=== PATIENT | female | born 1980 | race Caucasian/White ===

== ENCOUNTER 2019-03-23 07:35 | Day surgery (SDC) | payer OTHER ==
[~2019-03-23] VITALS: Ht 162.6 cm; Wt 52.9 kg
[~2019-03-23 07:35] MED LIST: BUPIVACAINE/PF 0.25% ONE; EPINEPHRINE 1 MG/ML, 1ML ONE; NEOMY/POLYMYXIN B GU IRR. 1 ML ONE
[2019-03-23] MEDS ORDERED: LACTATED RINGERS 1,000 ML IV SCH (07:57)
[2019-03-23 08:23] VITALS: BP 124/87
[2019-03-23] MEDS ORDERED: CALC250T PO (08:23)
[2019-03-23] MEDS ORDERED: FLUT9.9S NAS (08:23)
[2019-03-23] MEDS ORDERED: MEDR10TA PO (08:23)
[2019-03-23] MEDS ORDERED: MAGNESIUM PO (08:23)
[2019-03-23] MEDS ORDERED: BIOT25005 PO (08:23)
[2019-03-23] MEDS ORDERED: VITAMIN B12 PO (08:23)
[2019-03-23] MEDS ORDERED: LEVO25TA4 PO (08:23)
[2019-03-23] MEDS ORDERED: FERR-46 PO (08:23)
[2019-03-23] MEDS ORDERED: PLEASE ENTER ALLERGIES MC SCH (08:30)
[2019-03-23] MEDS ORDERED: GABAPENTIN 300 MG CAPSULE PO ONE (08:30)
[2019-03-23] MEDS ORDERED: PLEASE ENTER HEIGHT AND WEIGHT MC SCH (08:30)
[2019-03-23] MEDS ORDERED: ACETAMINOPHEN 500 MG TABLET PO ONE (08:30)
[2019-03-23] MEDS ORDERED: MIDAZOLAM 1 MG/ML, 2ML ONE (08:42)
[2019-03-23] MEDS ORDERED: FENTANYL PF 250 MCG/5ML ONE (08:42)
[2019-03-23 08:54] LABS: HCG UR SG 1.023 (1.003-1.030)
[2019-03-23 08:56] LABS: MEAN CORPUSCULAR HEMOGLOBIN 28.4 pg (27.0-34.8); MEAN CORPUSCULAR HGB CONC 32.8 g/dL (32.4-35.8); MEAN CORPUSCULAR VOLUME 86.4 fL (80-100); MEAN PLATELET VOLUME 9.3 fL (7.4-10.4); PLATELET COUNT 234 x10^3/uL (130-400); RED CELL DISTRIBUTION WIDTH 25.2 % (9.6-15.2)
[2019-03-23] MEDS ORDERED: DIPHENHYDRAMINE 50 MG/ML, 1ML IVPush PRN (09:00)
[2019-03-23] MEDS ORDERED: OXYcodone 5 MG/5 ML ORAL.SOL UDC PO PRN (09:00)
[2019-03-23] MEDS ORDERED: hydrALAzine 20 MG/ML, 1ML IV PRN (09:00)
[2019-03-23] MEDS ORDERED: PROCHLORPERAZINE 5 MG/ML, 2ML IV PRN (09:00)
[2019-03-23] MEDS ORDERED: HYDROmorphone 2 MG/ML, 1ML IVPush PRN (09:00)
[2019-03-23] MEDS ORDERED: METOPROLOL 1 MG/ML, 5ML IV PRN (09:00)
[2019-03-23] MEDS ORDERED: PROMETHAZINE 25 MG/ML, 1ML IV PRN (09:00)
[2019-03-23] MEDS ORDERED: HALOPERIDOL 5 MG/ML IV PRN (09:00)
[2019-03-23] MEDS ORDERED: LABETALOL 5MG/ML, 20ML IV PRN (09:00)
[2019-03-23] MEDS ORDERED: MEPERIDINE/PF 25MG/0.5ML IVPush PRN (09:00)
[2019-03-23 09:26] LABS: BASOPHILS # (AUTO) 0.05 x10^3/uL (0-0.1); BASOPHILS % (AUTO) 1 % (0-1); EOSINOPHILS # (AUTO) 0.44 x10^3/uL (0-0.4); EOSINOPHILS % (AUTO) 10 % (1-7); LYMPHOCYTES # (AUTO) 1.83 x10^3/uL (1-3.4); LYMPHOCYTES % (AUTO) 42 % (22-44); MD SCAN; MONOCYTES # (AUTO) 0.48 x10^3/uL (0.2-0.8); MONOCYTES % (AUTO) 11 % (2-9); NEUTROPHILS # (AUTO) 1.53 x10^3/uL (1.8-6.8); NEUTROPHILS % (AUTO) 35 % (42-75)
[2019-03-23] MEDS ORDERED: CEFAZOLIN 1,000 MG ONE (10:54)
[2019-03-23] MEDS ORDERED: PROPOFOL 10 MG/ML, 20ML ONE (10:54)
[2019-03-23] MEDS ORDERED: NEOSTIGMINE 1 MG/ML, 10ML ONE (10:54)
[2019-03-23] MEDS ORDERED: SUCCINYLCHOLINE 20 MG/ML, 10ML ONE (10:54)
[2019-03-23] MEDS ORDERED: DEXAMETHASONE 4 MG/ML, 1ML ONE (10:54)
[2019-03-23] MEDS ORDERED: ONDANSETRON 2MG/ML, 2ML ONE (10:54)
[2019-03-23] MEDS ORDERED: ROCURONIUM 10MG/ML,5ML ONE (10:54)
[2019-03-23] MEDS ORDERED: GLYCOPYRROLATE 0.2MG/1ML, 5ML ONE (10:54)
[2019-03-23] MEDS ORDERED: OXYcodone 5 MG/5 ML ORAL.SOL UDC ONE (11:12)
[2019-03-23] MEDS ORDERED: FENTANYL PF 100 MCG/2ML ONE (11:12)
[2019-03-23] MEDS: FENTANYL PF 100 MCG/2ML IV PRN ×4 (11:16→11:46)
== END 2019-03-23 14:13 | disposition home or self-care (01) ==
LOC: OR 07:35
PROVIDERS: ATTEND Obstetrics & Gynecology Female Pelvic Medicine and Reconstructive Surgery
DX: D25.1 Intramural leiomyoma of uterus (principal); N80.3 Endometriosis of pelvic peritoneum; N80.0 Endometriosis of uterus; N72 Inflammatory disease of cervix uteri; N88.8 Other specified noninflammatory disorders of cervix uteri; N81.10 Cystocele, unspecified; N81.6 Rectocele; N81.5 Vaginal enterocele; N81.89 Other female genital prolapse; N94.10 Unspecified dyspareunia; N39.3 Stress incontinence (female) (male); N32.81 Overactive bladder; D64.9 Anemia, unspecified; E03.9 Hypothyroidism, unspecified; Z72.89 Other problems related to lifestyle; Z79.890 Hormone replacement therapy; Z79.899 Other long term (current) drug therapy; Z98.51 Tubal ligation status; Z98.890 Other specified postprocedural states
CPT/HCPCS: 36415; 57265; 57282; 57288; 58552; 81025; 85025; 88307; C1771; J0171; J0330; J0690; J1100; J2250; J2405; J2704; J2710; J3010; J3490; J7120